=== PATIENT | female | born 1970 | race Caucasian/White ===

== ENCOUNTER → 2017-03-23 | Outpatient (CLI) | payer BC ==
--- NOTE | 2017-03-23 16:52 | MRI ---
HISTORY: Lumbar radiculopathy Study: MRI lumbar spine without contrast Comparison: None Technique: Multi planar multi sequence non contrast imaging Findings: The vertebral body alignment and bone signal is normal. The vertebral body heights are normal. No co mpression fractures are identified. The disc levels are evaluated as follows : T12-L1 level: No evidence for compressive disc disease. The neural foramina are patent. The joints a re normal. L1-2 level: No evidence for compressive disc disease. The neural foramina are patent. The joints are normal. L2-3 level: No evidence for compressive disc disease. The neural foramina are patent. The joints are normal. L3-4 level: Concentric disk bulging effaces the thecal sac and contributes to very minimal lateral r ecess narrowing bilaterally. The joints are normal. L4-5 level: Minimal circumferential disk bulging contributes to mild lateral recess narrowing bilate rally. The joints are normal. L5-S1 level: No evidence for compressive disc disease. The neural foramina are patent. Bilateral fac et arthropathy is present. IMPRESSION: As above Reported By:
== END | disposition home or self-care (01) ==
LOC: RAD 14:00
PROVIDERS: ATTEND Internal Medicine
DX: M54.16 Radiculopathy, lumbar region (principal); M51.26 Other intervertebral disc displacement, lumbar region
CPT/HCPCS: 72148